=== PATIENT | male | born 1995 | race Caucasian/White ===

== ENCOUNTER 2019-09-19 23:52 | Emergency (ER) | payer OTHER ==
[~2019-09-19] VITALS: Ht 198.1 cm; Wt 120.5 kg
[2019-09-19 23:56] VITALS: TEMP 97.7
[2019-09-19] MEDS ORDERED: INHALER (23:58)
[2019-09-20] MEDS ORDERED: PREDNISONE20 MG PO (01:12)
[2019-09-20 01:35] VITALS: BP 148/84
[2019-09-20 01:51] VITALS: PULSE 97
== END 2019-09-20 01:50 | disposition home or self-care (01) ==
LOC: COL.ER 23:52
DX: J45.901 Unspecified asthma with (acute) exacerbation (principal)
CPT/HCPCS: J7512

== ENCOUNTER 2019-09-25 04:33 | Emergency (ER) | payer OTHER ==
[~2019-09-25] VITALS: Ht 182.9 cm; Wt 120.5 kg
[~2019-09-25 04:33] MED LIST: INHALER; PREDNISONE20 MG PO
[2019-09-25 05:30] VITALS: BP 130/74; PULSE 72; TEMP 97.6
== END 2019-09-25 05:32 | disposition home or self-care (01) ==
LOC: COL.ER 04:33
DX: J45.901 Unspecified asthma with (acute) exacerbation (principal)
CPT/HCPCS: J7512